=== PATIENT | male | born 1990 | race African-American/Black ===

== ENCOUNTER 2017-06-02 15:31 | Emergency (ER) | payer SELFPAY ==
[2017-06-02 15:59] VITALS: BP 115/64; PULSE 69; TEMP 98.5; BMI 27.1
--- NOTE | 2017-06-02 16:50 | PDOC ---
Suture Removal/Wound Check HPI - History of Present Illness Chief Complaint: Suture/Staple Removal (other) Stated Complaint: SUTURE REMOVAL Time Seen by Provider: 06/02/17 16:18 History Source: Yes: Patient Exam Limitations: Yes: No Limitations Treated at: Other ED Date of Last ED visit: 05/23/17 - Previous ED Treatment Type of procedure performed on last visit: Yes: Laceration Repair - Onset of Previous Treatment Date of Occurence: 05/23/17 Comment:: The patient does not remember how many stitches were put in. Past History - Past Medical History Allergies/Adverse Reactions: Allergies No Known Allergies Allergy (Verified 06/02/17 15:56) Home Medications: Ambulatory Orders Warfarin Na [Coumadin -] 3 mg PO DAILY #0 tablet 01/23/14 - Immunization History Tetanus Status: Less than 5 years - Social History Smoking Status: Never smoked Medical Decision Making - Medical Decision Making A/P: 27 y/o male seen at [facility] on 05/23 for 2 facial lacerations. The patient does not recall how many stitches were put in place. I removed 30 stitches between 2 separate lacerations - one laceration that was horizontal across right eyebrow. The other was from left occipital area, behind ear and across the left side of his face. Patient tolerated procedure well. Margins are staying together well. Pt instructed to keep areas clean and dry. The patient verbalizes understanding of all instructions, has no further questions and is awaiting discharge. *DC/Admit/Observation/Transfer Diagnosis at time of Disposition: Encounter for removal of sutures - Discharge Dispostion Disposition: HOME Condition at time of disposition: Good - Patient Instructions Printed Discharge Instructions: DI for Suture Removal Additional Instructions: Discharge Instructions: -Keep wound clean and dry
== END 2017-06-02 16:51 | disposition home or self-care (01) ==
LOC: JERFT 15:31
DX: Z48.02 Encounter for removal of sutures (principal)
CPT/HCPCS: 99281-25